=== PATIENT | male | born 1960 | race Caucasian/White ===

== ENCOUNTER 2022-08-15 20:29 | Emergency (ER) | payer BC ==
[2022-08-15] MEDS ORDERED: Ketorolac 30 MG/ML SDV IVPUSH ONE (21:35)
[2022-08-15] MEDS ORDERED: Ondansetron 4 MG/2 ML SDV IVPUSH ONE (21:35)
[2022-08-15] MEDS ORDERED: Morphine 4 MG/ML Syringe IVPUSH ONE (21:35)
[2022-08-15] MEDS ORDERED: Sodium Chloride 0.9% 1,000 ML IV ONE (21:35)
[2022-08-15 22:26] LABS: CARBON DIOXIDE,CO2 31.7 mmol/L (21.0-32.0); POTASSIUM,K 3.7 mmol/L (3.5-5.1)
[2022-08-15] MEDS ORDERED: Iopamidol 755 MG/ML 500 ML Multipack Bottle IVPUSH ONE (22:44)
== END 2022-08-16 00:39 | disposition home or self-care (01) ==
LOC: MW.ED 20:29
DX: K80.20 Calculus of gallbladder without cholecystitis without obstruction (principal); I25.10 Atherosclerotic heart disease of native coronary artery without angina pectoris
CPT/HCPCS: 36415; 74177; 76705; 80053; 81003; 83690; 83735; 84484; 85025; 96361; 96374; 96375; 99284; J1885; J2270; J2405; J7030; Q9967

== ENCOUNTER 2025-07-03 21:32 | Emergency (ER) | payer BC ==
[2025-07-03] MEDS: Amoxicillin/Clavulanate K 875-125 MG Tab PO ONE (22:21)
== END 2025-07-03 22:23 | disposition home or self-care (01) ==
LOC: MW.ED 21:32
DX: K04.7 Periapical abscess without sinus (principal); Z79.899 Other long term (current) drug therapy
CPT/HCPCS: 99282; A9270; 99283